=== PATIENT | female | born 1955 | race Caucasian/White ===

== ENCOUNTER 2023-11-16 14:15 | Emergency (ER) | payer MEDICARE ==
[~2023-11-16] VITALS: Ht 160 cm; Wt 91.0 kg
[2023-11-16 14:44] VITALS: TEMP 98.5; O2SAT 100
[2023-11-16 17:00] VITALS: BP 139/68; PULSE 79; RESP 17
[2023-11-16] MEDS ORDERED: IBUP-2028 MT (17:02)
== END 2023-11-16 17:14 | disposition home or self-care (01) ==
LOC: ER 14:40
DX: R51.9 Headache, unspecified (principal); E11.9 Type 2 diabetes mellitus without complications; I10 Essential (primary) hypertension
CPT/HCPCS: 99284